=== PATIENT | female | born 1985 | race Hispanic/Latino ===

== ENCOUNTER → 2023-08-31 | Outpatient (REF) | payer MEDICARE | LOC: MAMMO 13:13 | PROVIDERS: ATTEND Internal Medicine | DX: N64.89 Other specified disorders of breast (principal) ==

== ENCOUNTER → 2024-09-06 | Outpatient (REF) | payer MEDICARE | LOC: MAMMO 12:58 | PROVIDERS: ATTEND Internal Medicine | DX: Z12.31 Encounter for screening mammogram for malignant neoplasm of breast (principal) | CPT/HCPCS: 77067 ==